=== PATIENT | female | born 1945 | race Native Hawaiian/Other Pacific Islander ===

== ENCOUNTER 2022-05-15 11:34 | Emergency (ER) | payer MEDICARE, MEDICAID ==
[~2022-05-15] VITALS: Ht 165.1 cm; Wt 79.4 kg
[2022-05-15 11:55] LABS: BASOPHILS # (AUTO) 0.1 10^3/uL (0.0-0.1); BASOPHILS % (AUTO) 1 % (0-10); EOSINOPHILS # (AUTO) 0.2 10^3/uL (0.0-0.3); EOSINOPHILS % (AUTO) 3 % (0-10); HEMATOCRIT 36 % (35-52); HEMOGLOBIN 12.8 g/dL (11.5-16.0); LYMPHOCYTES # (AUTO) 3.2 10^3/uL (1.0-4.0); LYMPHOCYTES % (AUTO) 35 % (12-44); MEAN CORPUSCULAR HEMOGLOBIN 33 pg (25-34); MEAN CORPUSCULAR HGB CONC 36 g/dL (32-36); MEAN CORPUSCULAR VOLUME 94 fL (80-99); MEAN PLATELET VOLUME 8.6 fL (9.0-12.2); MONOCYTES # (AUTO) 0.9 10^3/uL (0.0-1.0); MONOCYTES % (AUTO) 10 % (0-12); NEUTROPHILS # (AUTO) 4.9 10^3/uL (1.8-7.8); NEUTROPHILS % (AUTO) 52 % (42-75); PLATELET COUNT 375 10^3/uL (130-400); WHITE BLOOD COUNT 9.4 10^3/uL (4.3-11.0)
[2022-05-15 12:15] LABS: ALBUMIN 4.4 GM/DL (3.2-4.5)
[2022-05-15 12:16] LABS: POTASSIUM 4.3 MMOL/L (3.6-5.0)
[2022-05-15 12:17] LABS: CALCIUM 9.8 MG/DL (8.5-10.1)
[2022-05-15 12:18] LABS: TOTAL PROTEIN 7.6 GM/DL (6.4-8.2)
[2022-05-15 12:20] LABS: BILIRUBIN,TOTAL 0.4 MG/DL (0.1-1.0)
[2022-05-15 12:22] LABS: CREATININE SERUM 0.99 MG/DL (0.60-1.30)
[2022-05-15 12:25] LABS: MAGNESIUM 1.9 MG/DL (1.6-2.4)
[2022-05-15 12:41] LABS: BILIRUBIN,URINE NEGATIVE (NEGATIVE); CLARITY,URINE CLEAR; COLOR,URINE YELLOW; GLUCOSE, URINE (UA) NEGATIVE (NEGATIVE); KETONES,URINE NEGATIVE (NEGATIVE); LEUKOCYTE ESTERASE ,URINE TRACE (NEGATIVE); NITRITE,URINE NEGATIVE (NEGATIVE); PH,URINE 7.5 (5-9); PROTEIN,URINE NEGATIVE (NEGATIVE)
--- NOTE | 2022-05-15 12:44 | ED General ---
General Chief Complaint: General Problems/Pain Stated Complaint: LOW SODIUM LEVEL Nursing Triage Note: PT AMB TO [facility] WITH COMPLAINT OF LOW SODIUM. STATES WENT TO PCP AND HAD BLOOD WORK DRAWN. CALLED AND TOLD HER SODIUM WAS LOW, 123 AND TO COME TO THE HOSPITAL. STATES TODAYS BLOODWORK WAS A REPEAT FROM LAST WEEK. STATES IT WAS LOW LAST WEEK AND THEY TOLD HER TO EAT MORE SALT. Source of Information: Patient Exam Limitations: No Limitations History of Present Illness Date Seen by Provider: May 15, 2022 Time Seen by Provider: 11:50 Initial Comments Patient to the ER by private conveyance with chief complaint she was getting some follow-up labs at the [facility] for her routine labs this morning. They called her and told her her sodium was 123 and go to the ER. She is not having any nausea vomiting fevers chills cough diarrhea. She is had low sodium in the past. She is on verapamil, carvedilol, losartan. She has not been on HCTZ for over a year. She follows with [facility] for primary care. Allergies and Home Medications Allergies Coded Allergies: meloxicam (Verified Allergy, Unknown, 05/15/22) Patient Home Medication List Home Medication List Reviewed: Yes Review of Systems Review of Systems Constitutional: No chills, No diaphoresis EENTM: No ear discharge, No ear pain Respiratory: No cough, No short of breath Cardiovascular: No edema, No palpitations Gastrointestinal: No abdominal pain, No nausea, No vomiting Genitourinary: No discharge, No dysuria All Other Systems Reviewed Negative Unless Noted: Yes Past [id number]-[id number]-Fwzyxe Hx Patient Social History Tobacco Use?: No Use of E-Cig and/or Vaping dev: No Substance use?: No Alcohol Use?: No Pt feels they are or have been: No Physical Exam Vital Signs Vital Signs - First Documented 05/15/22 11:43 Pulse 76 Resp 18 B/P (MAP) 167/83 (111) Pulse Ox 96 O2 Delivery Room Air Capillary Refill : Less Than 3 Seconds Height, Weight, BMI Height: '" Weight: lbs. oz. kg; 29.00 BMI Method: General Appearance: No Apparent Distress, WD/WN Eyes: Bilateral Eye Normal Inspection, Bilateral Eye PERRL, Bilateral Eye EOMI HEENT: PERRL/EOMI, TMs Normal, Normal ENT Inspection, Pharynx Normal, Moist Mucous Membranes Neck: Full Range of Motion, Normal Inspection Respiratory: Lungs Clear, Normal Breath Sounds, No Accessory Muscle Use, No Respiratory Distress Cardiovascular: Regular Rate, Rhythm, No Edema, Normal Peripheral Pulses Gastrointestinal: Normal Bowel Sounds, Non Tender, Soft Neurologic/Psychiatric: Alert, Oriented x3, No Motor/Sensory Deficits, Normal Mood/Affect, instrument setter II-XII Norm as Tested Progress/Results/Core Measures Suspected Sepsis SIRS Temperature: Pulse: 76 Respiratory Rate: 18 Laboratory Tests 05/15/22 11:50: White Blood Count 9.4 Blood Pressure 167 /83 Mean: 111 Laboratory Tests 05/15/22 11:50: Creatinine 0.99, Platelet Count 375, Total Bilirubin 0.4 Results/Orders Lab Results Laboratory Tests Test 05/15/22 11:50 05/15/22 12:35 Range/Units White Blood Count 9.4 4.3-11.0 10^3/uL Red Blood Count 3.85 3.80-5.11 10^6/uL Hemoglobin 12.8 11.5-16.0 g/dL Hematocrit 36 35-52 % Mean Corpuscular Volume 94 80-99 fL Mean Corpuscular Hemoglobin 33 25-34 pg Mean Corpuscular Hemoglobin Concent 36 32-36 g/dL Red Cell Distribution Width 11.5 10.0-14.5 % Platelet Count 375 130-400 10^3/uL Mean Platelet Volume 8.6 L 9.0-12.2 fL Immature Granulocyte % (Auto) 0 % Neutrophils (%) (Auto) 52 42-75 % Lymphocytes (%) (Auto) 35 12-44 % Monocytes (%) (Auto) 10 0-12 % Eosinophils (%) (Auto) 3 0-10 % Basophils (%) (Auto) 1 0-10 % Neutrophils # (Auto) 4.9 1.8-7.8 10^3/uL Lymphocytes # (Auto) 3.2 1.0-4.0 10^3/uL Monocytes # (Auto) 0.9 0.0-1.0 10^3/uL Eosinophils # (Auto) 0.2 0.0-0.3 10^3/uL Basophils # (Auto) 0.1 0.0-0.1 10^3/uL Immature Granulocyte # (Auto) 0.0 0.0-0.1 10^3/uL Sodium Level 130 L 135-145 MMOL/L Potassium Level 4.3 3.6-5.0 MMOL/L Chloride Level 97 L 98-107 MMOL/L Carbon Dioxide Level 19 L 21-32 MMOL/L Anion Gap 14 5-14 MMOL/L Blood Urea Nitrogen 15 7-18 MG/DL Creatinine 0.99 0.60-1.30 MG/DL Estimat Glomerular Filtration Rate 58 BUN/Creatinine Ratio 15 Glucose Level 101 70-105 MG/DL Calcium Level 9.8 8.5-10.1 MG/DL Corrected Calcium 9.5 8.5-10.1 MG/DL Magnesium Level 1.9 1.6-2.4 MG/DL Total Bilirubin 0.4 0.1-1.0 MG/DL Aspartate Amino Transf (AST/SGOT) 30 5-34 U/L Alanine Aminotransferase (ALT/SGPT) 26 0-55 U/L Alkaline Phosphatase 80 40-136 U/L Total Protein 7.6 6.4-8.2 GM/DL Albumin 4.4 3.2-4.5 GM/DL Urine Color YELLOW Urine Clarity CLEAR Urine pH 7.5 5-9 Urine Specific [place] 1.015 L 1.016-1.022 Urine Protein NEGATIVE NEGATIVE Urine Glucose (UA) NEGATIVE NEGATIVE Urine Ketones NEGATIVE NEGATIVE Urine Nitrite NEGATIVE NEGATIVE Urine Bilirubin NEGATIVE NEGATIVE Urine Urobilinogen 0.2 < = 1.0 MG/DL Urine Leukocyte Esterase TRACE H NEGATIVE Urine RBC (Auto) NEGATIVE NEGATIVE Urine RBC NONE /HPF Urine WBC 0-2 /HPF Urine Squamous Epithelial Cells 2-5 /HPF Urine Crystals NONE /LPF Urine Bacteria LARGE H /HPF Urine Casts NONE /LPF Urine Mucus NEGATIVE /LPF Urine Culture Indicated YES My Orders Orders - DILAN MARTIN Cbc With Automated Diff (05/15/22 11:49) Comprehensive Metabolic Panel (05/15/22 11:49) Magnesium (05/15/22 11:49) Ua Culture If Indicated (05/15/22 11:49) Ed Iv/Invasive Line Start (05/15/22 12:45) Ns Iv 1000 Ml (Sodium Chloride 0.9%) (05/15/22 12:45) Urine Culture (05/15/22 12:35) Vital Signs/I&O 05/15/22 05/15/22 11:43 14:19 Pulse 76 84 Resp 18 20 B/P (MAP) 167/83 (111) 152/81 Pulse Ox 96 98 O2 Delivery Room Air Capillary Refill : Less Than 3 Seconds Blood Pressure Mean: 111 Progress Note : Time: 13:15 Progress Note We will give her a liter of fluids. She is in no acute distress. She can follow-up outpatient for her chronic hyponatremia which is in no way emergent at this time. Departure Impression Primary Impression: Hyponatremia Disposition: 01 HOME, SELF-CARE Condition: Stable Departure-Patient Inst. Decision time for Depature: 13:16 Patient Instructions: Hyponatremia (DC) Add. Discharge Instructions: Follow-up with your primary care doctor to further work-up the source of your low sodium. All discharge instructions reviewed with patient and/or family. Voiced understanding. DILAN MARTIN J May 15, 2022 12:44
[2022-05-15] MEDS ORDERED: NS IV 1000 ML 1,000 ML IV SCH (12:45)
[2022-05-15 12:56] LABS: BACTERIA,URINE LARGE /HPF; WBC,URINE 0-2 /HPF
[2022-05-15 14:19] VITALS: BP 152/81
== END 2022-05-15 14:18 | disposition home or self-care (01) ==
LOC: ER 11:41
DX: E87.1 Hypo-osmolality and hyponatremia (principal)
CPT/HCPCS: 36415; 80053; 81000; 83735; 85025; 87077; 87088; 87186